=== PATIENT | male | born 2000 | race African-American/Black ===

== ENCOUNTER 2019-06-25 22:54 | Emergency (ER) | payer OTHER ==
[~2019-06-25] VITALS: Ht 188 cm; Wt 83.9 kg
--- NOTE | 2019-06-25 23:05 | NUR ---
ED Nurse Note: Walk-in patient presents with complaints of right finger injury while changing a light bulbs. Patient is calm and has no active bleeding at site of right hand.
[2019-06-25 23:11] VITALS: BP 128/71
--- NOTE | 2019-06-25 23:38 | Emergency Room Report ---
History of Present Illness General Chief Complaint: Laceration Source: Patient Present Illness HPI Disclaimer: Please note that this report is being documented using [employer] technology. This can lead to erroneous entry secondary to incorrect interpretation by the dictating instrument. HPI: 18-year-old otherwise healthy male presents for evaluation of laceration to the right index finger. The patient is right-hand dominant. He was changing a light bulb fixture when it suddenly fell and he caught it as it was falling causing the glass to shatter in his hand. He sustained a laceration to the ulnar aspect of the right index finger. He is able to flex and extend though did have significant bleeding at scene but is now hemostatic after applying a pressure dressing. Tetanus was updated 2 years ago. No other injury sustained. Denies any pain or injury to the wrist, elbow or shoulder. There is no fall or head injury. PMH: Denies PSH: Denies Allergies: Denies Social Hx: Denies drug or alcohol abuse Allergies: Coded Allergies: No Known Allergies (Unverified , 06/25/19) Review of Systems All Other Systems: negative except mentioned in HPI Physical Exam Vital Signs Date Time Temp Pulse Resp B/P (MAP) Pulse Ox O2 Delivery O2 Flow Rate FiO2 06/25/19 23:00 98.2 64 16 128/71 (90) 98 Room Air Procedures Laceration/Wound Repair Laceration/Wound Repair : Wound Location: upper extremity - Right index finger Wound's Depth, Shape: superficial Wound Length (cm): 6 Wound Explored: clean Betadine Prep?: Yes Anesthesia: 1% Lidocaine Volume Anesthetic (ccs): 8 Wound Debrided: None Wound Repaired With: sutures Suture Size/Type: 5:0, proline Number of Sutures: 12 Layer Closure?: No Sterile Dressing Applied?: Yes Patient Tolerated: Well Complications: None Medical Decision Making Diagnostic Impression: Primary Impression: Laceration ER Course 18-year-old male presents for laceration to the right index finger that occurred while changing a light bulb. No significant debris noted on x-ray. The wound was sutured with 12 simple interrupted 5-0 Prolene stitches with good approximation. Digital nerve block was used in the wound was irrigated under continuous running water for approximately 5 minutes. No significant blood loss he tolerated the procedure well. Will start on Keflex for prophylaxis. He can follow-up with his PMD for suture removal in 10 to 14 days. Discussed reasons to return to the emergency department patient and mother was present at bedside. He understands and agrees with treatment plan was discharged home. Last Vital Signs Date Time Temp Pulse Resp B/P (MAP) Pulse Ox O2 Delivery O2 Flow Rate FiO2 06/25/19 23:11 98.2 76 16 128/71 98 Room Air Disposition: HOME, SELF-CARE Condition: Improved Scripts Cephalexin* (CEPHALEXIN*) 500 Mg Tablet 500 MG ORAL EVERY 12 HOURS for 7 Days, #14 CAP Prov: Rolando Brink MD 06/26/19 Rolando Brink MD Jun 25, 2019 23:38
[2019-06-25] MEDS ORDERED: Lidocaine 1% Plain 30 ml INJ ONE (23:45)
--- NOTE | 2019-06-26 | NUR ---
ED Nurse Note: Patient is resting comfortably awaiting radiology visit. Will continue to monitor.
[2019-06-26] MEDS ORDERED: CEPHALEXIN500 M1 ORAL (01:49)
--- NOTE | 2019-06-26 02:06 | NUR ---
ED Nurse Note: Patient cleared for discharge by ERMD with no s/s of acute distress. Patient tolerated dressing well. Patient ID band removed. Patient verbalized understanding of discharge instructions and departed with all belongings accompanied by his parent.
[2019-06-26 02:07] VITALS: BP 128/71
--- NOTE | 2019-06-26 11:13 | Diagnostic Imaging Report ---
Indication: Right hand pain Findings: 3 views of the right hand were obtained. There is severe maceration and injury to the soft tissues involving the second digit in the right hand. There is no obvious fracture or malalignment. IMPRESSION: Soft tissue injury
== END 2019-06-26 02:08 | disposition home or self-care (01) ==
LOC: EMR 23:30
DX: S61.210A Laceration without foreign body of right index finger without damage to nail, initial encounter (principal); W25.XXXA Contact with sharp glass, initial encounter; Y92.9 Unspecified place or not applicable
CPT/HCPCS: 12002; 73130; J2001; Z7502; 99283